=== PATIENT | female | born 1980 | race Two or more races ===

== ENCOUNTER 2022-07-16 06:55 | Observation (INO) | payer OTHER ==
[~2022-07-16] VITALS: Ht 180.3 cm; Wt 108.9 kg
[2022-07-16] MEDS ORDERED: LACTATED RINGER'S 1,000 ML IV SCH (07:45)
[2022-07-16 08:31] LABS: Basophils # (auto) 0 10 ^3/uL (0-0.2); Basophils % (auto) 0.5 % (0.0-2.0); Eosinophils # (auto) 0.3 10 ^3/uL (0-0.8); Eosinophils % (auto) 2.8 % (0.0-7.0); Hematocrit 32.5 % (36.0-46.0); Hemoglobin 10.8 g/dL (12.2-16.2); Lymphocytes # (auto) 2.4 10 ^3/uL (0.4-5.4); Mean Corpuscular Hemoglobin 28.2 pg (28.0-32.0); Mean Corpuscular Hgb Conc. 33.3 g/dL (32.0-36.0); Mean Corpuscular Volume 84.8 fL (80.0-100.0); Monocytes # (auto) 0.5 10 ^3/uL (0-1.3); Monocytes % (auto) 4.5 % (0.0-12.0); Neutrophils # (auto) 7.3 10 ^3/uL (1.6-8.6); Neutrophils % (auto) 69.2 % (37.0-80.0); Red Blood Cells 3.83 10^6/uL (4.0-5.20); Red Cell Distribution Width 13.1 % (11.8-14.3); White Blood Cell 10.6 10^3/uL (4.4-10.8)
[2022-07-16 08:34] LABS: Alcohol, Urine < 3.0 mg/dL (0-10); Amphetamine Screen, Urine POSITIVE (NEGATIVE); Barbiturate Scree,Urine NEGATIVE (NEGATIVE); Benzodiazephine Screen, Urine NEGATIVE (NEGATIVE); Cannabinoid Screen, Urine NEGATIVE (NEGATIVE); Cocaine Screen, Urine NEGATIVE (NEGATIVE); Phencyclidine Screen, Urine NEGATIVE (NEGATIVE); Protein, Urine 21.6 mg/dL (0.0-11.9)
[2022-07-16 08:42] LABS: Creatinine, Urine 54 mg/dL (30.0-125.0); Opiate Scree,Urine NEGATIVE (NEGATIVE)
[2022-07-16 09:09] LABS: Calcium 8.4 mg/dL (8.5-10.1); Potassium 3.5 mmol/L (3.5-5.1)
[2022-07-16 09:15] LABS: Albumin 2.1 g/dL (3.4-5.0); BUN/Creatinine Ratio 6.8; Bilirubin, Total 0.5 mg/dL (0.2-1.0); Total Protein 6.2 g/dL (6.4-8.2); Uric Acid 7.6 mg/dL (2.6-6.0)
[2022-07-16 09:39] LABS: Urine Bacteria NONE SEEN /hpf (None Seen); Urine Blood Negative /uL (Negative); Urine Specific Gravity 1.008 (1.001-1.035); Urine WBC 3 /hpf (0 - 5)
[2022-07-16 12:01] LABS: INR 0.9 (0.9-1.15); Partial Thromboplastin Time 27.3 sec (24.6-33.4)
[2022-07-17 06:07] LABS: RPR Non Reactive (Non Reactive); Rubella Antibodies, IgG 1.14 index (Immune >0.99)
== END 2022-07-16 11:22 | disposition home or self-care (01) ==
LOC: LDRP 06:55
PROVIDERS: ADMIT Obstetrics & Gynecology; ATTEND Obstetrics & Gynecology
DX: O62.9 Abnormality of forces of labor, unspecified (principal); Z20.822 Contact with and (suspected) exposure to COVID-19; O21.2 Late vomiting of pregnancy; O26.893 Other specified pregnancy related conditions, third trimester; R51.9 Headache, unspecified; R10.2 Pelvic and perineal pain; R10.9 Unspecified abdominal pain; O10.013 Pre-existing essential hypertension complicating pregnancy, third trimester; Z3A.33 33 weeks gestation of pregnancy; Z79.899 Other long term (current) drug therapy
CPT/HCPCS: 36415; 59025; 76805; 80053; 80307; 81001; 81002; 82570; 84156; 84550; 85025; 85362; 85379; 85384; 85610; 85730; 86592; 86703; 86762; 86850; 86900; 86901; 87340; 87426; 94760; G0378; U0003

== ENCOUNTER 2022-11-04 00:13 | Inpatient (IN) | payer MEDICAID, OTHER ==
[~2022-11-04] VITALS: Ht 180.3 cm; Wt 114.0 kg
[2022-11-04 00:49] LABS: Basophils # (auto) 0.1 10 ^3/uL (0-0.2); Eosinophils # (auto) 0.3 10 ^3/uL (0-0.8); Hemoglobin 10.1 g/dL (12.2-16.2); Lymphocytes # (auto) 3.2 10 ^3/uL (0.4-5.4); Neutrophils # (auto) 5.7 10 ^3/uL (1.6-8.6)
[2022-11-04 00:51] LABS: Eosinophils % (auto) 3.4 % (0.0-7.0); Hematocrit 32.9 % (36.0-46.0); Lymphocytes % (auto) 32.1 % (10.0-50.0); Mean Corpuscular Hgb Conc. 30.8 g/dL (32.0-36.0); Mean Corpuscular Volume 77.9 fL (80.0-100.0); Monocytes # (auto) 0.6 10 ^3/uL (0-1.3); Monocytes % (auto) 5.8 % (0.0-12.0); Neutrophils % (auto) 57.7 % (37.0-80.0); Nucleated Red Blood Cells % 0.6 %; Red Blood Cells 4.23 10^6/uL (4.0-5.20); Red Cell Distribution Width 17.7 % (11.8-14.3); White Blood Cell 9.9 10^3/uL (4.4-10.8)
[2022-11-04 01:09] LABS: Albumin 2.8 g/dL (3.4-5.0); BUN/Creatinine Ratio 14.6; Calcium 8.5 mg/dL (8.5-10.1); Potassium 4.3 mmol/L (3.5-5.1)
[2022-11-04 01:12] LABS: Bilirubin, Total 0.9 mg/dL (0.2-1.0); Total Protein 6.8 g/dL (6.4-8.2)
[2022-11-04] MEDS ORDERED: ASPirin 81 mg TAB PO ONE (02:45)
[2022-11-04] MEDS ORDERED: NITROGLYCERIN 0.4 MG SL TAB SL PRN (09:00)
[2022-11-04] MEDS ORDERED: ACETAMINOPHEN 325 MG TAB PO PRN (09:00)
[2022-11-04] MEDS ORDERED: ONDANSETRON HCL 4 MG/2 ML VIAL IV PRN (09:00)
[2022-11-04] MEDS ORDERED: ALUM & MAG HYDROX-SIMETH LIQ(MAALOX) 30 ML PO ONE (09:00)
[2022-11-04] MEDS ORDERED: FUROSEMIDE 40 MG/4 ML VIAL IV ONE (09:00)
[2022-11-04] MEDS ORDERED: METOPROLOL TARTRATE 1MG/1ML-5ML VIAL IV ONE (09:00)
[2022-11-04] MEDS ORDERED: MORPHINE SULFATE 4 MG/ML SYR/VIAL IV PRN (09:00)
[2022-11-04] MEDS: FUROSEMIDE 40 MG/4 ML VIAL IV SCH (10:00)
[2022-11-04] MEDS: METOPROLOL TARTRATE 25 MG TAB PO SCH ×2 (10:00→22:18)
[2022-11-04] MEDS: DOCUSATE SOD 100 MG CAP PO SCH (10:00)
[2022-11-04] MEDS: ENOXAPARIN SOD 80 MG/0.8ML SYRINGE SC SCH ×2 (10:10→22:12)
[2022-11-04] MEDS: NICOTINE 21MG/24 HR TOPICAL PATCH TD SCH (10:10)
[2022-11-04] MEDS: ASPirin 81 mg TAB PO SCH (10:10)
[2022-11-04 11:01] LABS: INR 1.18 (0.9-1.15)
[2022-11-04] MEDS: HYDROcodone-ACET 5/325MG TAB PO PRN ×2 (16:22→22:24)
[2022-11-04] MEDS: ATORVASTATIN 20 MG TAB PO SCH (22:13)
[2022-11-05] MEDS: HYDROcodone-ACET 5/325MG TAB PO PRN ×2 (04:27→21:00)
[2022-11-05 05:00] LABS: Basophils # (auto) 0.1 10 ^3/uL (0-0.2); Basophils % (auto) 0.8 % (0.0-2.0); Eosinophils # (auto) 0.1 10 ^3/uL (0-0.8); Eosinophils % (auto) 1.2 % (0.0-7.0); Hematocrit 36.1 % (36.0-46.0); Hemoglobin 10.8 g/dL (12.2-16.2); Lymphocytes # (auto) 3.7 10 ^3/uL (0.4-5.4); Lymphocytes % (auto) 34.4 % (10.0-50.0); Mean Corpuscular Hemoglobin 23.8 pg (28.0-32.0); Mean Corpuscular Volume 79.5 fL (80.0-100.0); Monocytes # (auto) 0.8 10 ^3/uL (0-1.3); Monocytes % (auto) 7.1 % (0.0-12.0); Neutrophils # (auto) 6.1 10 ^3/uL (1.6-8.6); Neutrophils % (auto) 56.5 % (37.0-80.0); Nucleated Red Blood Cells % 0.9 %; Red Blood Cells 4.54 10^6/uL (4.0-5.20); Red Cell Distribution Width 18.4 % (11.8-14.3); White Blood Cell 10.8 10^3/uL (4.4-10.8)
[2022-11-05 05:13] LABS: Albumin 2.8 g/dL (3.4-5.0); BUN/Creatinine Ratio 15.4; Calcium 8.4 mg/dL (8.5-10.1); Potassium 4.1 mmol/L (3.5-5.1)
[2022-11-05 05:16] LABS: Bilirubin, Total 1.5 mg/dL (0.2-1.0); Total Protein 7.3 g/dL (6.4-8.2)
[2022-11-05] MEDS: ENOXAPARIN SOD 80 MG/0.8ML SYRINGE SC SCH (11:08)
[2022-11-05] MEDS: ATORVASTATIN 20 MG TAB PO SCH (11:08)
[2022-11-05] MEDS: FUROSEMIDE 40 MG/4 ML VIAL IV SCH ×2 (11:08→17:56)
[2022-11-05] MEDS: ASPirin 81 mg TAB PO SCH (11:10)
[2022-11-05] MEDS: DOCUSATE SOD 100 MG CAP PO SCH (11:11)
[2022-11-05] MEDS: METOPROLOL TARTRATE 25 MG TAB PO SCH (11:22)
[2022-11-05] MEDS: NICOTINE 21MG/24 HR TOPICAL PATCH TD SCH (11:23)
[2022-11-05] MEDS ORDERED: MAGNESIUM SULFATE 1GM/100ML 100 ML IV ONE (16:15)
[2022-11-05 17:00] VITALS: BP 134/102
[2022-11-05 17:39] VITALS: BP 134/102
[2022-11-05] MEDS ORDERED: LISI2.5T47 PO (19:31)
[2022-11-05 22:00] VITALS: BP 127/100
[2022-11-05] MEDS: SACUBITRIL-VALSARTAN 24mg/26mg TAB PO SCH (22:00)
[2022-11-05] MEDS: CARVEDILOL 3.125 MG TAB PO SCH (22:00)
[2022-11-06 05:00] VITALS: BP 119/75
[2022-11-06] MEDS: FUROSEMIDE 40 MG/4 ML VIAL IV SCH ×2 (06:00→18:00)
[2022-11-06] MEDS: EMPAGLIFLOZIN 10 MG TAB PO SCH (06:25)
[2022-11-06 06:59] LABS: Cholesterol 75 mg/dL (< 200); HDL Cholesterol 34 mg/dL (40-59); LDL Cholesterol 40 mg/dL (< 100); Triglycerides 64 mg/dL (< 150)
[2022-11-06 08:00] VITALS: BP 132/90
[2022-11-06] MEDS: NICOTINE 21MG/24 HR TOPICAL PATCH TD SCH (09:53)
[2022-11-06] MEDS: SACUBITRIL-VALSARTAN 24mg/26mg TAB PO SCH ×2 (09:53→22:57)
[2022-11-06] MEDS: ASPirin 81 mg TAB PO SCH (09:53)
[2022-11-06] MEDS: DOCUSATE SOD 100 MG CAP PO SCH (09:54)
[2022-11-06] MEDS: CARVEDILOL 3.125 MG TAB PO SCH ×2 (09:54→22:56)
[2022-11-06 12:00] VITALS: BP 113/76
[2022-11-06 16:00] VITALS: BP 101/69
[2022-11-06] MEDS: HYDROcodone-ACET 5/325MG TAB PO PRN ×2 (16:27→22:57)
[2022-11-06 20:00] VITALS: BP 106/67
[2022-11-06 22:00] VITALS: BP 106/67
[2022-11-06] MEDS: ATORVASTATIN 20 MG TAB PO SCH (22:57)
[2022-11-07] VITALS (7 sets, daily range): BP systolic 100–121; BP diastolic 55–77
[2022-11-07] MEDS: FUROSEMIDE 40 MG/4 ML VIAL IV SCH ×2 (06:24→18:21)
[2022-11-07] MEDS: EMPAGLIFLOZIN 10 MG TAB PO SCH (06:25)
[2022-11-07] MEDS: HYDROcodone-ACET 5/325MG TAB PO PRN ×4 (06:31→23:59)
[2022-11-07] MEDS: SACUBITRIL-VALSARTAN 24mg/26mg TAB PO SCH ×2 (09:37→21:41)
[2022-11-07] MEDS: DOCUSATE SOD 100 MG CAP PO SCH (09:37)
[2022-11-07] MEDS: CARVEDILOL 3.125 MG TAB PO SCH ×2 (09:38→21:41)
[2022-11-07] MEDS: NICOTINE 21MG/24 HR TOPICAL PATCH TD SCH (09:39)
[2022-11-07] MEDS: ASPirin 81 mg TAB PO SCH (09:40)
[2022-11-07] MEDS: ATORVASTATIN 20 MG TAB PO SCH (21:41)
[2022-11-08 04:13] VITALS: BP 105/66
[2022-11-08] MEDS: FUROSEMIDE 40 MG/4 ML VIAL IV SCH (05:27)
[2022-11-08] MEDS: EMPAGLIFLOZIN 10 MG TAB PO SCH (05:28)
[2022-11-08 07:55] VITALS: BP 110/77
[2022-11-08 08:17] VITALS: BP 115/78
[2022-11-08] MEDS: NICOTINE 21MG/24 HR TOPICAL PATCH TD SCH (10:00)
[2022-11-08] MEDS ORDERED: FURO1TAB33 PO (10:18)
[2022-11-08] MEDS ORDERED: CAR3125T PO (10:18)
[2022-11-08] MEDS ORDERED: LISI-716 PO (10:18)
[2022-11-08] MEDS: CARVEDILOL 3.125 MG TAB PO SCH (10:33)
[2022-11-08] MEDS: ASPirin 81 mg TAB PO SCH (10:34)
[2022-11-08] MEDS: DOCUSATE SOD 100 MG CAP PO SCH (10:34)
[2022-11-08] MEDS: HYDROcodone-ACET 5/325MG TAB PO PRN (10:34)
[2022-11-08] MEDS: SACUBITRIL-VALSARTAN 24mg/26mg TAB PO SCH (12:18)
[2022-11-08 13:14] VITALS: BP 97/57
[2022-11-08 17:00] VITALS: BP 99/64
[2022-11-09 19:49] LABS: Hepatitis C Antibody Positive (Negative)
== END 2022-11-08 17:05 | disposition home or self-care (01) | DRG 194 ==
LOC: ER 00:13 → TELE 09:01 → TELE-WESTW 11-05 16:57
PROVIDERS: ADMIT Nurse Practitioner Family; ATTEND Internal Medicine
DX: I11.0 Hypertensive heart disease with heart failure (principal); J96.01 Acute respiratory failure with hypoxia; I21.A1 Myocardial infarction type 2; E43 Unspecified severe protein-calorie malnutrition; I50.41 Acute combined systolic (congestive) and diastolic (congestive) heart failure; D63.8 Anemia in other chronic diseases classified elsewhere; D62 Acute posthemorrhagic anemia; I24.9 Acute ischemic heart disease, unspecified; I42.7 Cardiomyopathy due to drug and external agent; E66.9 Obesity, unspecified; Z20.822 Contact with and (suspected) exposure to COVID-19; F10.10 Alcohol abuse, uncomplicated; I16.0 Hypertensive urgency; Z68.35 Body mass index [BMI] 35.0-35.9, adult; F15.10 Other stimulant abuse, uncomplicated; F17.200 Nicotine dependence, unspecified, uncomplicated; Z79.899 Other long term (current) drug therapy; Z71.6 Tobacco abuse counseling
CPT/HCPCS: 36415; 71045; 80053; 80061; 82962; 83036; 83735; 83880; 84100; 84443; 84484; 85025; 85379; 85610; 86803; 87340; 87426; 93005; 93306; 96374; G0378; J2405

== ENCOUNTER 2023-01-09 00:38 | Inpatient (IN) | payer MEDICAID ==
[~2023-01-09] VITALS: Ht 167.6 cm; Wt 110.0 kg
[~2023-01-09 00:38] MED LIST: CAR3125T PO; FURO1TAB33 PO; LISI-716 PO; LISI2.5T47 PO
[2023-01-09 01:19] LABS: Basophils # (auto) 0.3 10 ^3/uL (0-0.2); Eosinophils # (auto) 0.2 10 ^3/uL (0-0.8); Eosinophils % (auto) 1.9 % (0.0-7.0); Hematocrit 31.4 % (36.0-46.0); Hemoglobin 9.9 g/dL (12.2-16.2); Lymphocytes # (auto) 3.3 10 ^3/uL (0.4-5.4); Lymphocytes % (auto) 33.9 % (10.0-50.0); Mean Corpuscular Hemoglobin 23.8 pg (28.0-32.0); Mean Corpuscular Hgb Conc. 31.4 g/dL (32.0-36.0); Mean Corpuscular Volume 75.7 fL (80.0-100.0); Monocytes # (auto) 0.7 10 ^3/uL (0-1.3); Neutrophils # (auto) 5.2 10 ^3/uL (1.6-8.6); Neutrophils % (auto) 54.2 % (37.0-80.0); Nucleated Red Blood Cells % 0.3 %; Red Blood Cells 4.14 10^6/uL (4.0-5.20); Red Cell Distribution Width 19.6 % (11.8-14.3); White Blood Cell 9.6 10^3/uL (4.4-10.8)
[2023-01-09 01:32] LABS: BUN/Creatinine Ratio 14.7; Calcium 8.2 mg/dL (8.5-10.1); Potassium 3.8 mmol/L (3.5-5.1)
[2023-01-09 01:35] LABS: Bilirubin, Total 3.7 mg/dL (0.2-1.0); Total Protein 7.3 g/dL (6.4-8.2)
[2023-01-09 01:53] LABS: INR 1.38 (0.9-1.15); Partial Thromboplastin Time 28.5 sec (24.6-33.4)
[2023-01-09] MEDS ORDERED: ASPirin 325 MG TAB PO ONE (02:15)
[2023-01-09] MEDS ORDERED: ACETAMINOPHEN 325 MG TAB PO PRN (03:15)
[2023-01-09] MEDS ORDERED: HEPARIN SODIUM (PORCINE) 5000 UNITS/ML 1ML VIAL IV ONE ×2 (03:15→12:00)
[2023-01-09] MEDS ORDERED: HEPARIN DRIP/D5W 100UNITS/ML 250 ML IV SCH ×2 (03:15→12:00)
[2023-01-09] MEDS ORDERED: FUROSEMIDE 40 MG/4 ML VIAL IV ONE (03:15)
[2023-01-09] MEDS ORDERED: ONDANSETRON HCL 4 MG/2 ML VIAL IV PRN (03:15)
[2023-01-09] MEDS ORDERED: DOCUSATE SOD 100 MG CAP PO PRN (03:15)
[2023-01-09] MEDS ORDERED: IOHEXOL 350 MG/ML 100ML IJ ONE (03:29)
[2023-01-09] MEDS: HYDROcodone-ACET 5/325MG TAB PO PRN ×4 (03:46→23:11)
[2023-01-09 04:36] LABS: Urine Bacteria FEW /hpf (None Seen); Urine Blood Negative /uL (Negative); Urine Mucus FEW (None Seen); Urine Specific Gravity 1.012 (1.001-1.035); Urine WBC 3 /hpf (0 - 5)
[2023-01-09] MEDS ORDERED: NITROGLYCERIN 0.4 MG SL TAB SL PRN (05:15)
[2023-01-09] MEDS ORDERED: MORPHINE SULFATE INJ 2 MG/ml SYRG IV PRN (05:15)
[2023-01-09] MEDS: SODIUM CHLOR 0.9% PF (SALINE LOCK) 10ML VIAL/SYR IV SCH ×3 (05:55→22:00)
[2023-01-09 07:12] LABS: Basophils # (auto) 0.1 10 ^3/uL (0-0.2); Eosinophils # (auto) 0.3 10 ^3/uL (0-0.8); Mean Corpuscular Hgb Conc. 30.1 g/dL (32.0-36.0); Monocytes # (auto) 0.8 10 ^3/uL (0-1.3); Neutrophils # (auto) 5.1 10 ^3/uL (1.6-8.6); White Blood Cell 9.5 10^3/uL (4.4-10.8)
[2023-01-09 07:15] LABS: Basophils % (auto) 1.3 % (0.0-2.0); Hematocrit 31.8 % (36.0-46.0); Hemoglobin 9.6 g/dL (12.2-16.2); Lymphocytes # (auto) 3.1 10 ^3/uL (0.4-5.4); Mean Corpuscular Hemoglobin 23.5 pg (28.0-32.0); Mean Corpuscular Volume 78.1 fL (80.0-100.0); Monocytes % (auto) 8.6 % (0.0-12.0); Neutrophils % (auto) 54.1 % (37.0-80.0); Nucleated Red Blood Cells % 0.1 %; Red Blood Cells 4.07 10^6/uL (4.0-5.20)
[2023-01-09 07:16] LABS: Red Cell Distribution Width 20.3 % (11.8-14.3)
[2023-01-09 07:26] LABS: BUN/Creatinine Ratio 13.5; Bilirubin, Total 3.4 mg/dL (0.2-1.0); Calcium 8.3 mg/dL (8.5-10.1); Potassium 3.4 mmol/L (3.5-5.1)
[2023-01-09 07:27] LABS: Albumin 2.9 g/dL (3.4-5.0)
[2023-01-09 11:35] LABS: INR 1.38 (0.9-1.15); Partial Thromboplastin Time 34.6 sec (24.6-33.4)
[2023-01-09] MEDS ORDERED: HEPARIN SODIUM (PORCINE) 5000 UNITS/ML 1ML VIAL ONE ×8 (12:20→12:21)
[2023-01-09] MEDS: FAMOTIDINE (10MG/ML) 2ML VL IV SCH (12:22)
[2023-01-09] MEDS: ASPirin 81 mg TAB PO SCH (12:23)
[2023-01-09] MEDS: FUROSEMIDE 40 MG/4 ML VIAL IV SCH (12:23)
[2023-01-09] MEDS: CARVEDILOL 3.125 MG TAB PO SCH ×2 (12:23→23:05)
[2023-01-09 21:47] VITALS: BP 122/92
[2023-01-09 23:23] LABS: INR 1.24 (0.9-1.15); Partial Thromboplastin Time 47.6 sec (24.6-33.4)
[2023-01-10] MEDS ORDERED: INFLUENZA QUAD 2022-2023 0.5 ML SYRG IM ONE (01:15)
[2023-01-10 05:00] VITALS: BP 122/78
[2023-01-10 06:15] LABS: Basophils # (auto) 0.1 10 ^3/uL (0-0.2); Eosinophils # (auto) 0.6 10 ^3/uL (0-0.8); Hemoglobin 9.7 g/dL (12.2-16.2); Mean Corpuscular Hemoglobin 23.5 pg (28.0-32.0); Mean Corpuscular Hgb Conc. 31.2 g/dL (32.0-36.0); Monocytes # (auto) 0.6 10 ^3/uL (0-1.3)
[2023-01-10 06:18] LABS: Eosinophils % (auto) 8.5 % (0.0-7.0); Lymphocytes # (auto) 2.2 10 ^3/uL (0.4-5.4); Lymphocytes % (auto) 31.5 % (10.0-50.0); Mean Corpuscular Volume 75.5 fL (80.0-100.0); Monocytes % (auto) 8.6 % (0.0-12.0); Neutrophils # (auto) 3.4 10 ^3/uL (1.6-8.6); Neutrophils % (auto) 49.4 % (37.0-80.0); Nucleated Red Blood Cells % 0.3 %
[2023-01-10] MEDS: HYDROcodone-ACET 5/325MG TAB PO PRN ×3 (06:18→17:52)
[2023-01-10] MEDS: SODIUM CHLOR 0.9% PF (SALINE LOCK) 10ML VIAL/SYR IV SCH ×3 (06:18→22:39)
[2023-01-10 06:58] LABS: Potassium 3.6 mmol/L (3.5-5.1)
[2023-01-10 07:09] LABS: Albumin 2.8 g/dL (3.4-5.0); BUN/Creatinine Ratio 15.3; Calcium 8.2 mg/dL (8.5-10.1); Red Cell Distribution Width 20.1 % (11.8-14.3); Total Protein 6.7 g/dL (6.4-8.2)
[2023-01-10 08:30] VITALS: BP 108/73
[2023-01-10] MEDS: CARVEDILOL 3.125 MG TAB PO SCH ×2 (10:00→22:44)
[2023-01-10] MEDS: ASPirin 81 mg TAB PO SCH (10:28)
[2023-01-10] MEDS: FUROSEMIDE 40 MG/4 ML VIAL IV SCH (10:29)
[2023-01-10] MEDS: FAMOTIDINE (10MG/ML) 2ML VL IV SCH (10:29)
[2023-01-10 12:59] VITALS: BP 117/83
[2023-01-10 16:34] VITALS: BP 116/84
[2023-01-10 22:00] VITALS: BP 122/85
[2023-01-11] MEDS: HYDROcodone-ACET 5/325MG TAB PO PRN ×2 (02:17→08:44)
[2023-01-11 05:00] VITALS: BP 109/79
[2023-01-11] MEDS: SODIUM CHLOR 0.9% PF (SALINE LOCK) 10ML VIAL/SYR IV SCH ×3 (05:26→22:47)
[2023-01-11 08:05] VITALS: BP 124/96
[2023-01-11] MEDS: FAMOTIDINE (10MG/ML) 2ML VL IV SCH (10:06)
[2023-01-11] MEDS: ASPirin 81 mg TAB PO SCH (10:06)
[2023-01-11] MEDS: FUROSEMIDE 40 MG/4 ML VIAL IV SCH (10:06)
[2023-01-11] MEDS: CARVEDILOL 3.125 MG TAB PO SCH ×2 (10:06→22:49)
[2023-01-11 11:39] VITALS: BP 131/92
[2023-01-11 16:44] VITALS: BP 118/91
[2023-01-11 22:00] VITALS: BP 128/94
[2023-01-12] MEDS: HYDROcodone-ACET 5/325MG TAB PO PRN ×2 (01:08→21:33)
[2023-01-12 05:00] VITALS: BP 123/83
[2023-01-12] MEDS: SODIUM CHLOR 0.9% PF (SALINE LOCK) 10ML VIAL/SYR IV SCH ×3 (05:14→21:28)
[2023-01-12 09:23] VITALS: BP 124/98
[2023-01-12] MEDS: FAMOTIDINE (10MG/ML) 2ML VL IV SCH (09:28)
[2023-01-12] MEDS: ASPirin 81 mg TAB PO SCH (09:28)
[2023-01-12] MEDS: CARVEDILOL 3.125 MG TAB PO SCH ×2 (09:28→21:30)
[2023-01-12 11:03] LABS: Basophils # (auto) 0.1 10 ^3/uL (0-0.2); Eosinophils # (auto) 0.2 10 ^3/uL (0-0.8); Hemoglobin 9.6 g/dL (12.2-16.2); Mean Corpuscular Hemoglobin 23.4 pg (28.0-32.0); Mean Corpuscular Volume 76.4 fL (80.0-100.0); Monocytes # (auto) 0.5 10 ^3/uL (0-1.3); Neutrophils # (auto) 3.8 10 ^3/uL (1.6-8.6)
[2023-01-12 11:06] LABS: Basophils % (auto) 1.1 % (0.0-2.0); Eosinophils % (auto) 2.4 % (0.0-7.0); Hematocrit 31.3 % (36.0-46.0); Lymphocytes # (auto) 2.4 10 ^3/uL (0.4-5.4); Lymphocytes % (auto) 34.7 % (10.0-50.0); Mean Corpuscular Hgb Conc. 30.6 g/dL (32.0-36.0); Monocytes % (auto) 7.4 % (0.0-12.0); Neutrophils % (auto) 54.4 % (37.0-80.0); Nucleated Red Blood Cells % 0.2 %
[2023-01-12 11:08] LABS: Red Cell Distribution Width 20.1 % (11.8-14.3)
[2023-01-12 11:17] LABS: Albumin 2.7 g/dL (3.4-5.0); Potassium 4.4 mmol/L (3.5-5.1)
[2023-01-12 11:31] LABS: BUN/Creatinine Ratio 25.3; Bilirubin, Total 1.2 mg/dL (0.2-1.0); Total Protein 6.4 g/dL (6.4-8.2)
[2023-01-12 12:30] VITALS: BP 124/92
[2023-01-12] MEDS: ONDANSETRON HCL 4 MG/2 ML VIAL IV PRN (12:59)
[2023-01-12] MEDS ORDERED: PANTOPRAZOLE 40 MG/10 ML VIAL INJ IV ONE (15:30)
[2023-01-12 17:08] VITALS: BP 133/92
[2023-01-12 22:00] VITALS: BP 130/103
[2023-01-13] VITALS (10 sets, daily range): BP systolic 123–138; BP diastolic 90–106
[2023-01-13] MEDS: SODIUM CHLOR 0.9% PF (SALINE LOCK) 10ML VIAL/SYR IV SCH ×2 (05:21→14:03)
[2023-01-13 07:06] LABS: Basophils # (auto) 0.1 10 ^3/uL (0-0.2); Basophils % (auto) 1.6 % (0.0-2.0); Eosinophils # (auto) 0.2 10 ^3/uL (0-0.8); Eosinophils % (auto) 2.3 % (0.0-7.0); Hematocrit 32.6 % (36.0-46.0); Lymphocytes # (auto) 2.9 10 ^3/uL (0.4-5.4); Lymphocytes % (auto) 38.3 % (10.0-50.0); Mean Corpuscular Hemoglobin 23.3 pg (28.0-32.0); Mean Corpuscular Hgb Conc. 30.6 g/dL (32.0-36.0); Mean Corpuscular Volume 76.2 fL (80.0-100.0); Monocytes # (auto) 0.7 10 ^3/uL (0-1.3); Neutrophils # (auto) 3.6 10 ^3/uL (1.6-8.6); Neutrophils % (auto) 48.8 % (37.0-80.0); Nucleated Red Blood Cells % 0.2 %; Red Blood Cells 4.28 10^6/uL (4.0-5.20); Red Cell Distribution Width 19.3 % (11.8-14.3); White Blood Cell 7.5 10^3/uL (4.4-10.8)
[2023-01-13 07:10] LABS: Albumin 2.8 g/dL (3.4-5.0); BUN/Creatinine Ratio 21.7; Calcium 8.7 mg/dL (8.5-10.1)
[2023-01-13 07:22] LABS: Bilirubin, Total 1.2 mg/dL (0.2-1.0)
[2023-01-13 08:20] LABS: Potassium 4.4 mmol/L (3.5-5.1)
[2023-01-13] MEDS: ASPirin 81 mg TAB PO SCH (08:51)
[2023-01-13] MEDS: CARVEDILOL 3.125 MG TAB PO SCH (08:51)
[2023-01-13] MEDS: FAMOTIDINE (10MG/ML) 2ML VL IV SCH (08:51)
[2023-01-13] MEDS: ONDANSETRON HCL 4 MG/2 ML VIAL IV PRN (08:55)
[2023-01-13] MEDS: HYDROcodone-ACET 5/325MG TAB PO PRN ×2 (08:55→18:26)
[2023-01-13] MEDS ORDERED: PANTOPRAZOLE 40 MG/10 ML VIAL INJ IV SCH (10:00)
[2023-01-13] MEDS ORDERED: ONDANSETRON ODT 4 MG TAB PO PRN (10:15)
[2023-01-13 13:05] LABS: Urine Bacteria FEW /hpf (None Seen); Urine Blood Negative /uL (Negative); Urine Specific Gravity 1.021 (1.001-1.035); Urine WBC 6 /hpf (0 - 5)
[2023-01-13] MEDS ORDERED: CAR3125T PO ×2 (15:43)
[2023-01-13] MEDS ORDERED: LOS25T PO ×2 (15:43)
[2023-01-13] MEDS ORDERED: ONDA-144 PO ×2 (15:44)
[2023-01-14] MEDS ORDERED: LOSARTAN POTASSIUM 25 MG TAB PO SCH (10:00)
[2023-01-16] MEDS ORDERED: EMPAGLIFLOZIN 10 MG TAB PO SCH (07:00)
[2023-01-28] MEDS ORDERED: CIPR-173 PO (09:54)
[2023-01-28] MEDS ORDERED: ONDA-144 PO (09:54)
== END 2023-01-13 19:54 | disposition home or self-care (01) | DRG 194 ==
LOC: EDBD 00:38 → ER 00:38 → TELE 05:10 → TELE-WESTW 21:03
PROVIDERS: ADMIT Nurse Practitioner Family; ATTEND Student in an Organized Health Care Education/Training Program
DX: I11.0 Hypertensive heart disease with heart failure (principal); I42.7 Cardiomyopathy due to drug and external agent; E88.09 Other disorders of plasma-protein metabolism, not elsewhere classified; E66.9 Obesity, unspecified; F15.10 Other stimulant abuse, uncomplicated; R09.02 Hypoxemia; Z20.822 Contact with and (suspected) exposure to COVID-19; I50.43 Acute on chronic combined systolic (congestive) and diastolic (congestive) heart failure; F17.210 Nicotine dependence, cigarettes, uncomplicated; K52.9 Noninfective gastroenteritis and colitis, unspecified; Z59.00 Homelessness unspecified; Z68.39 Body mass index [BMI] 39.0-39.9, adult
CPT/HCPCS: 36415; 71275; 80053; 81001; 83605; 83690; 83735; 83880; 84484; 85025; 85379; 85610; 85730; 87040; 87086; 87088; 87186; 87426; 87804; 93005; 96365; 96366; 96375; 96376; C9113; G0378; J2405; J3490; Q0162

== ENCOUNTER 2023-01-25 03:38 | Emergency (ER) | payer MEDICAID ==
[~2023-01-25] VITALS: Ht 180.3 cm; Wt 81.9 kg
[~2023-01-25 03:38] MED LIST changes: +LOS25T PO; +ONDA-144 PO
[2023-01-25 04:46] LABS: Basophils # (auto) 0.1 10 ^3/uL (0-0.2); Basophils % (auto) 1.1 % (0.0-2.0); Eosinophils # (auto) 0.1 10 ^3/uL (0-0.8); Eosinophils % (auto) 1.6 % (0.0-7.0); Hematocrit 32.4 % (36.0-46.0); Hemoglobin 10.1 g/dL (12.2-16.2); Lymphocytes # (auto) 2.8 10 ^3/uL (0.4-5.4); Lymphocytes % (auto) 29.8 % (10.0-50.0); Mean Corpuscular Hemoglobin 23.4 pg (28.0-32.0); Mean Corpuscular Hgb Conc. 31.1 g/dL (32.0-36.0); Mean Corpuscular Volume 75.4 fL (80.0-100.0); Monocytes # (auto) 0.7 10 ^3/uL (0-1.3); Monocytes % (auto) 7.1 % (0.0-12.0); Neutrophils # (auto) 5.7 10 ^3/uL (1.6-8.6); Neutrophils % (auto) 60.4 % (37.0-80.0); Nucleated Red Blood Cells % 0.3 %; Red Blood Cells 4.29 10^6/uL (4.0-5.20); White Blood Cell 9.4 10^3/uL (4.4-10.8)
[2023-01-25 04:47] LABS: Red Cell Distribution Width 20.3 % (11.8-14.3)
[2023-01-25 05:04] LABS: Albumin 3.2 g/dL (3.4-5.0); Calcium 8.2 mg/dL (8.5-10.1); Magnesium 1.8 mg/dL (1.6-2.6); Potassium 4.4 mmol/L (3.5-5.1)
[2023-01-25 05:08] LABS: BUN/Creatinine Ratio 16.7; Bilirubin, Total 1.8 mg/dL (0.2-1.0)
[2023-01-25 07:14] VITALS: BP 136/99
[2023-01-28] MEDS ORDERED: ONDA-144 PO (09:54)
[2023-01-28] MEDS ORDERED: CIPR-173 PO (09:54)
== END 2023-01-25 07:24 | disposition home or self-care (01) ==
LOC: ER 03:38
DX: R07.89 Other chest pain (principal); M25.512 Pain in left shoulder; F15.10 Other stimulant abuse, uncomplicated; F12.10 Cannabis abuse, uncomplicated; F17.210 Nicotine dependence, cigarettes, uncomplicated; I11.0 Hypertensive heart disease with heart failure; I50.9 Heart failure, unspecified; Z59.00 Homelessness unspecified
CPT/HCPCS: 36415; 71046; 80053; 83735; 83880; 84484; 85025; 93005

== ENCOUNTER 2024-05-29 18:52 | Emergency (ER) | payer MEDICAID ==
[~2024-05-29] VITALS: Ht 180.3 cm; Wt 121.5 kg
[~2024-05-29 18:52] MED LIST changes: -CAR3125T PO; +CARV-214 PO; +CIPR-173 PO; -LISI-716 PO; +LISI10TA34 PO
[2024-05-29 19:29] LABS: Basophils # (auto) 0.1 10 ^3/uL (0-0.2); Eosinophils # (auto) 0.4 10 ^3/uL (0-0.8); Eosinophils % (auto) 4.5 % (0.0-7.0); Hematocrit 44.4 % (36.0-46.0); Hemoglobin 14.9 g/dL (12.2-16.2); Lymphocytes % (auto) 24.7 % (10.0-50.0); Mean Corpuscular Hgb Conc. 33.5 g/dL (32.0-36.0); Mean Corpuscular Volume 92.5 fL (80.0-100.0); Monocytes # (auto) 0.5 10 ^3/uL (0-1.3); Neutrophils # (auto) 5.1 10 ^3/uL (1.6-8.6); Neutrophils % (auto) 63.8 % (37.0-80.0); Nucleated Red Blood Cells % 0.1 %; Red Cell Distribution Width 14.4 % (11.8-14.3)
[2024-05-29 19:57] LABS: Alanine Aminotransferase 127 U/L (7-40); Albumin 4.4 g/dL (3.2-4.8); Alkaline Phosphatase 285 U/L (46-116); Anion Gap 10 (5-15); Aspartate Aminotransferase 150 U/L (13-40); BUN/Creatinine Ratio 6.3 (10.0-20.0); Bilirubin, Total 1.7 mg/dL (0.2-1.0); Blood Urea Nitrogen 7 mg/dL (9-23); Calcium 10.3 mg/dL (8.5-10.1); Carbon Dioxide 26 mmol/L (20-30); Chloride 104 mmol/L (98-107); Glucose 103 mg/dL (74-106); Potassium 3.1 mmol/L (3.5-5.1); Sodium 140 mmol/L (136-145)
[2024-05-29 19:58] LABS: Total Protein 8.2 g/dL (5.7-8.2)
[2024-05-30 00:49] LABS: Urine Blood Negative /uL (Negative); Urine Clarity Turbid (Clear); Urine Color Yellow (Yellow); Urine Protein, UAD 1+ (Negative); Urine Specific Gravity 1.021 (1.001-1.035); Urine Urobilinogen 6 mg/dL (Negative)
[2024-05-30] MEDS ORDERED: CEPH250C PO (01:50)
[2024-05-30] MEDS: POTASSIUM EFFERVESENT TAB 25 MEQ PO ONE (02:07)
[2024-05-30 02:17] VITALS: BP 121/85; PULSE 120; RESP 16; TEMP 97.8; O2SAT 97
== END 2024-05-30 02:16 | disposition home or self-care (01) ==
LOC: ER 18:52
DX: N39.0 Urinary tract infection, site not specified (principal); R07.89 Other chest pain; I11.0 Hypertensive heart disease with heart failure; I50.9 Heart failure, unspecified; F17.210 Nicotine dependence, cigarettes, uncomplicated; F15.10 Other stimulant abuse, uncomplicated; F12.10 Cannabis abuse, uncomplicated; Z90.49 Acquired absence of other specified parts of digestive tract; Z86.2 Personal history of diseases of the blood and blood-forming organs and certain disorders involving the immune mechanism; Z59.00 Homelessness unspecified; Z79.899 Other long term (current) drug therapy
CPT/HCPCS: 36415; 80053; 81003; 84484; 85025; 93005

== ENCOUNTER 2025-01-23 13:17 | Emergency (ER) | payer MEDICAID ==
[~2025-01-23] VITALS: Ht 154.9 cm; Wt 100.0 kg
[~2025-01-23 13:17] MED LIST changes: +CEPH250C PO
[2025-01-23] MEDS ORDERED: MIDAZOLAM HCL 5 MG/ML-1ML VIAL IV ONE (13:30)
--- NOTE | 2025-01-23 14:14 | ED.PDOC ---
Altered Mental Status HPI Comments 44 year old female brought in by EMS presents to the ED with a chief complaint of ALOC onset today (01/23/25). Per EMS, patient was found at [employer] parking lot, states she took unknown dose of Suboxone. Upon EMS arrival, pupils were pinpoint, Narcan 1 mg given. Patient was tachycardiac, hypertensive with BP 165/110. Upon ED arrival patient was on restraints, agitated and irritated. No further information obtained from patient. PMHx HTN, anemia. Chief Complaint: Overdose Time Seen by MD: 13:21 Primary Care Provider: LEXY Reviewed Notes: Medications, Allergies Allergies: Coded Allergies: NO KNOWN ALLERGIES (Unverified , 07/16/22) Home Meds Active Scripts Cephalexin (KEFLEX CAPSULE) 250 Mg Cp, 500 MG PO TID for 7 Days, #42 TAB Prov:YULIA MCCLENDON MD 05/30/24 Ondansetron (Zofran) 4 Mg Tab, 1 TAB PO Q6HR, #20 TAB Prov:MARCIAL DAVID MD 01/28/23 Ciprofloxacin Hcl (Cipro) 500 Mg Tab, 1 TAB PO BID, #14 TAB Prov:MARCIAL DAVID MD 01/28/23 Ondansetron (Zofran) 4 Mg Tab, 4 MG PO QID PRN for 5 Days, #20 TAB Prov:TERRIE CH MD 01/13/23 Losartan Potassium (Losartan Potassium) 25 Mg Tab, 12.5 MG PO DAILY for 30 Days, #15 TAB Prov:TERRIE CH MD 01/13/23 Carvedilol (COREG) 3.125 Mg Tab, 3.125 MG PO Q12HR for 30 Days, #60 TAB Prov:TERRIE CH MD 01/13/23 Lisinopril (Lisinopril) 10 Mg Tab, 10 MG PO DAILY for 90 Days, #90 TAB Prov:ANNE MARIE HOOPER NP 11/08/22 Furosemide (Lasix) 20 Mg Tb, 1 TAB PO DAILY PRN for 90 Days, #90 TAB 3 Refills Prov:ANNE MARIE HOOPER NP 11/08/22 Carvedilol (COREG) 3.125 Mg Tab, 6.25 MG PO Q12HR for 90 Days, #360 TAB Prov:ANNE MARIE HOOPER SCARIFIER OPERATOR 11/08/22 Reported Medications Lisinopril (Lisinopril) 2.5 Mg Tab, 2.5 MG PO DAILY for 30 Days, MG 11/05/22 Information Source: Emergency Med Personnel Mode of Arrival: EMS Severity: Moderate Timing: Hours Duration: Since onset Prehospital treatment: Restraints, Other (Narcan 1 mg) Quality: Change in Behavior Recent: Medication/Drug Abuse History of: None Past Medical History PAST MEDICAL HISTORY: Anemia, CHF, HTN Surgical History: Cholecystectomy MUSIC RESEARCHER History: Denies all MUSIC RESEARCHER Hx Family History Family History: Reviewed,noncontributory to illness Social History Smoker: Cigarettes, Less Than 1 Pack/Day Alcohol: Occasionally Drugs: Marijuana, Methamphetamine Lives In: Homeless Unable to Obtain due to: Altered Mental Status Physical Exam General Appearance: No Apparent Distress, Normal HEENT: Normal ENT Inspection, Pharynx Normal, TMs Normal Neck: Full Range of Motion, Non-Tender, Normal, Normal Inspection Respiratory: Chest Non-Tender, Lungs Clear, No Accessory Muscle Use, No Respiratory Distress, Normal Breath Sounds Cardiovascular: No Edema, No JVD, No Murmur, No Gallop, Normal Peripheral Pulses, Regular Rate/Rhythm Breast Exam: Deferred Gastrointestinal: No Organomegaly, Non Tender, No Pulsatile Mass, Normal Bowel Sounds, Soft Genitalia: Deferred Pelvic: Deferred Rectal: Deferred Extremities: No calf tenderness, Normal capillary refill, Normal inspection, Normal range of motion, Non-tender, No pedal edema Musculoskeletal : Apperance: Normal Neurologic: Alert, real estate closer II-XII nml as Tested, No Motor Deficits, Normal Affect, Normal Mood, No Sensory Deficits Cerebellar Function: Normal Reflexes: Normal Skin: Dry, Normal Color, Warm Lymphatic: No Adenopathy Was a procedure done? Was a procedure done?: No X-Ray, Labs, Meds, VS Vital Signs Date Time Temp Pulse Resp B/P (MAP) Pulse Ox O2 Delivery O2 Flow Rate FiO2 01/23/25 13:17 98.6 115 16 165/110 (128) 96 Time of 1ST Reevaluation: 13:51 Reevaluation 1ST: Unchanged Patient Education/Counseling: Diagnosis, Treatment, Prognosis Family Education/Counseling: No Family Present Additional Information The following tests were ordered, and results were reviewed by me: BMP, DRUG SCREEN, BLOOD ALCOHOL, ACETAMINOPHEN, CBC, SALICYLATE, UA Additional Information was gathered from interviewing the following independent historians: EMS I discussed treatment and results with medical personnel and: patient Critical Care Note Critical Care Time?: No Stability Stability form required: No I personally scribed for MANJIT ANSARI MD ([email or web address]) on 01/23/25 at 14:14. Electronically submitted by Meli Mcfarland ([email or web address]). I personally scribed for MANJIT ANSARI MD ([email or web address]) on 01/23/25 at 14:41. Electronically submitted by Meli Mcfarland ([email or web address]). MANJIT ANSARI MD Jan 23, 2025 14:14
[2025-01-23 16:42] LABS: Basophils # (auto) 0 10 ^3/uL (0-0.2); Basophils % (auto) 0.5 % (0.0-2.0); Eosinophils # (auto) 0 10 ^3/uL (0-0.8); Eosinophils % (auto) 0.2 % (0.0-7.0); Hematocrit 43.8 % (36.0-46.0); Hemoglobin 14.4 g/dL (12.2-16.2); Lymphocytes # (auto) 1.3 10 ^3/uL (0.4-5.4); Lymphocytes % (auto) 17.6 % (10.0-50.0); Mean Corpuscular Hemoglobin 28.4 pg (28.0-32.0); Mean Corpuscular Hgb Conc. 32.9 g/dL (32.0-36.0); Mean Corpuscular Volume 86.3 fL (80.0-100.0); Monocytes # (auto) 0.3 10 ^3/uL (0-1.3); Monocytes % (auto) 3.4 % (0.0-12.0); Neutrophils # (auto) 5.8 10 ^3/uL (1.6-8.6); Neutrophils % (auto) 78.3 % (37.0-80.0); Nucleated Red Blood Cells % 0.1 %; Platelet Count (auto) 299 10^3/uL (140-450); Red Blood Cells 5.07 10^6/uL (4.0-5.20); Red Cell Distribution Width 12.8 % (11.8-14.3); White Blood Cell 7.4 10^3/uL (4.4-10.8)
[2025-01-23 16:50] LABS: Anion Gap 10 (5-15); Carbon Dioxide 25 mmol/L (20-31); Chloride 104 mmol/L (98-107); Potassium 3.7 mmol/L (3.5-5.1); Sodium 139 mmol/L (136-145)
[2025-01-23 16:51] LABS: Calcium 10.2 mg/dL (8.7-10.4)
[2025-01-23 16:56] LABS: BUN/Creatinine Ratio 18.4 (10.0-20.0); Blood Alcohol 3.9 mg/dL (<10); Blood Urea Nitrogen 19 mg/dL (9-23); Glucose 106 mg/dL (74-106)
[2025-01-23 17:10] LABS: Acetaminophen < 2.0 UG/ML (10.0-20.0); Salicylate < 3.0 mg/dL (-30)
[2025-01-23 18:28] VITALS: PULSE 89; RESP 17; O2SAT 95
[2025-01-23 19:33] VITALS: BP 146/97; TEMP 98.6
[2025-01-23 19:41] VITALS: PULSE 102; RESP 16; O2SAT 95
== END 2025-01-23 20:15 | disposition left against medical advice (07) ==
LOC: EDBD 13:17 → ER 13:17
DX: R41.82 Altered mental status, unspecified (principal); I11.0 Hypertensive heart disease with heart failure; I50.9 Heart failure, unspecified; F17.210 Nicotine dependence, cigarettes, uncomplicated; Z90.49 Acquired absence of other specified parts of digestive tract; Z79.899 Other long term (current) drug therapy; Z59.00 Homelessness unspecified
CPT/HCPCS: 36415; 80048; 80320; 80329; 82947; 85025